=== PATIENT | female | born 1990 | race American Indian/Alaskan Native ===

== ENCOUNTER 2017-12-09 10:57 | Emergency (ER) | payer SELFPAY ==
--- NOTE | 2017-12-09 11:37 | Emergency Department Report ---
ED Psych HPI - General Chief Complaint: Anxiety Stated Complaint: ANXIETY Time Seen by Provider: 12/09/17 11:28 Source: patient Mode of arrival: Ambulatory - History of Present Illness Initial Comments: Ms. Villa is a pleasant healthy 27-year-old female with history of anxiety. She says she's felt very anxious over the last 2 days unable to sleep. She had previously been followed by physician in [facility]. She has taken hydroxyzine in the past. No new social stressors. She denies any physical complaints other than tension headache. She has intermittent chest pain which changes with certain positions. MD Complaint: other (anxious) -: Gradual, days(s) (2) History of same: Yes Quality: constant Context: not taking psychiatric - Related Data Previous Rx's Medication Instructions Recorded Last Taken Type hydrOXYzine HCl [Hydroxyzine HCl] 25 mg PO QID PRN #30 tablet 12/09/17 Unknown Rx Allergies Allergy/AdvReac Type Severity Reaction Status Date / Time No Known Allergies Allergy Unverified 12/09/17 11:06 ED Review of Systems ROS: Stated complaint: ANXIETY Other details as noted in HPI Comment: All other systems reviewed and negative Constitutional: denies: malaise Respiratory: denies: cough ED Past Medical Hx - Past Medical History Hx Psychiatric Treatment: Yes (anxiety) - Surgical History Additional Surgical History: ectopic x2 - Social History Smoking Status: Never Smoker Substance Use Type: None - Medications Home Medications: Home Medications Medication Instructions Recorded Confirmed Last Taken Type hydrOXYzine HCl [Hydroxyzine HCl] 25 mg PO QID PRN #30 tablet 12/09/17 Unknown Rx ED Physical Exam - General Limitations: No Limitations General appearance: alert, in no apparent distress - Head Head exam: Present: atraumatic, normocephalic - Eye Eye exam: Present: normal appearance - ENT ENT exam: Present: mucous membranes moist - Neck Neck exam: Present: normal inspection. Absent: tenderness, meningismus - Respiratory Respiratory exam: Present: normal lung sounds bilaterally. Absent: respiratory distress, wheezes, rales, rhonchi - Cardiovascular Cardiovascular Exam: Present: regular rate, normal rhythm, normal heart sounds. Absent: systolic murmur, diastolic murmur, rubs, gallop - GI/Abdominal GI/Abdominal exam: Present: soft, normal bowel sounds. Absent: distended, tenderness, guarding, rebound - Extremities Exam Extremities exam: Present: normal inspection - Back Exam Back exam: Present: normal inspection - Neurological Exam Neurological exam: Present: alert, oriented X3 - Psychiatric Psychiatric exam: Present: normal affect, normal mood. Absent: depressed, agitated, anxious, flat affect, manic, homicidal ideation, suicidal ideation - Skin Skin exam: Present: warm, dry, intact, normal color. Absent: rash ED Course Vital Signs 12/09/17 11:06 Temperature 98.9 F Pulse Rate 84 Respiratory 18 Rate Blood Pressure 116/53 O2 Sat by Pulse 99 Oximetry ED Medical Decision Making - Medical Decision Making Ms. Villa has hx of anxiety disorder. Has taken hydroxyzine in the past. No suicidal or homicidal ideation. No depression. No social stressors. She has tension headache typical for patient. She stated that at time she's had intermittent chest pain mostly when she lays in certain positions in bed. No current chest pain at this time. I prescribed 30 tablets of hydroxyzine. Critical care attestation.: If time is entered above; I have spent that time in minutes in the direct care of this critically ill patient, excluding procedure time. ED Disposition Clinical Impression: Anxiety, Tension headache Disposition: DC-01 TO HOME OR SELFCARE Is pt being admited?: No Does the pt Need Aspirin: No Condition: Stable Instructions: Anxiety (ED), Tension Headache (ED) Prescriptions: hydrOXYzine HCl [Hydroxyzine HCl] 25 mg PO QID PRN #30 tablet PRN Reason: Anxiety Referrals: [facility] [Outside] - 3-5 Days Time of Disposition: 11:37
[2017-12-09] MEDS ORDERED: MOTRIN PO ONE (11:38)
[2017-12-09 12:01] VITALS: BP 95/52
== END 2017-12-09 11:59 | disposition home or self-care (01) ==
LOC: ED 10:57
DX: G44.209 Tension-type headache, unspecified, not intractable (principal)
CPT/HCPCS: 99282